=== PATIENT | male | born 1965 ===

== ENCOUNTER 2017-12-15 08:35 | Day surgery (SDC) | payer BC ==
[~2017-12-15] VITALS: Ht 190.5 cm; Wt 99.8 kg
[2017-12-15] VITALS (9 sets, daily range): BP systolic 105–135; BP diastolic 72–95
[2017-12-15] MEDS ORDERED: ceFAZolin sod 1 GM in NS 55 ML IVPB ONE (09:00)
[2017-12-15] MEDS ORDERED: NKM (09:27)
[2017-12-15] MEDS ORDERED: Kenalog-40 1ml Vial ONE (09:52)
[2017-12-15] MEDS ORDERED: Betadine 10% Oint 30gm TOPIC ONE (09:52)
[2017-12-15] MEDS ORDERED: Cocaine HCl 4% 4ml vial TOPIC ONE (09:52)
[2017-12-15] MEDS ORDERED: Lidocaine 1% 10mg/ml/Epi 0.005mg/ml 30ml vial INJ ONE (09:53)
[2017-12-15] MEDS ORDERED: Oxymetazoline 0.05% Na Spray 30ml NASAL ONE (09:53)
[2017-12-15] MEDS ORDERED: fentaNYL 100 mcg/2 mL IV ONE (10:29)
[2017-12-15] MEDS ORDERED: Lidocaine 1% MPF 10mg/ml 5ml ONE (10:29)
[2017-12-15] MEDS ORDERED: Propofol 200mg/20ml IV ONE ×3 (10:29→14:10)
[2017-12-15] MEDS ORDERED: Midazolam 2mg/2ml Inj ONE ×2 (10:29→12:05)
[2017-12-15] MEDS ORDERED: Succinylcholine 20mg/ml 10ml vial ONE (11:08)
[2017-12-15] MEDS ORDERED: Zemuron 50mg/5ml Inj IV ONE (11:08)
--- NOTE | 2017-12-15 11:20 | Pre-Procedure Note/Attestation ---
Pre-Procedure Note/Attestation Complete Prior to Procedure Planned Procedure: not applicable Procedure Narrative: repair of nasal obstruction Indications for Procedure Pre-Operative Diagnosis: septal deviation, bilateral hypertrophied inferior turbinates, obstructing nasal deformities Attestation I attest that I discussed the nature of the procedure; its benefits; risks and complications; and alternatives (and the risks and benefits of such alternatives ), prior to the procedure, with the patient (or the patient's legal telephone sales representative). I attest that, if there was a reasonable possibility of needing a blood transfusion, the patient (or the patient's legal telephone sales representative) was given the [facility] standardized written summary, pursuant to the [place] Blood Safety Act ([place] Health and Safety Code # 1645, as amended). I attest that I re-evaluated the patient just prior to the surgery and that there has been no change in the patient's H&P, except as documented below: HEMAL KOWALSKI Dec 15, 2017 11:20
[2017-12-15] MEDS ORDERED: NS Irrig 1000ml ONE (11:30)
[2017-12-15] MEDS ORDERED: LR 1000ml ONE (11:30)
[2017-12-15] MEDS ORDERED: Sterile Water Irrig 1000ml IRRIG ONE (11:30)
[2017-12-15] MEDS ORDERED: Lidocaine 1% 10mg/ml/EPI 0.01mg/ml 50ml INJ ONE (11:40)
[2017-12-15] MEDS ORDERED: LR 1000ml 1,000 ML IVLG SCH (12:39)
--- NOTE | 2017-12-15 12:39 | Anethesia Preoperative Eval ---
Anesthesia Pre-op PMH/ROS General Date of Evaluation: Dec 15, 2017 Time of Evaluation: 11:22 Anesthesiologist: Dixon ASA Score: ASA 2 Mallampati Score Class I : Soft palate, uvula, fauces, pillars visible Class II: Soft palate, uvula, fauces visible Class III: Soft palate, base of uvula visible Class IV: Only hard plate visible Mallampati Classification: Class II Surgeon: Manpreet Diagnosis: Deviated septum Surgical Procedure: Septoplasty turbinate ablasion Anesthesia History: none Social History: smoking - h/o Family History: no anesthesia problems Allergies: Coded Allergies: No Known Allergies (Unverified , 12/13/17) Medications: see eMAR Past Medical History Cardiovascular: Denies: HTN, CAD, [place], valve dz, arrhythmia, other Pulmonary: Denies: asthma, COPD, [place], other Gastrointestinal/Genitourinary: Reports: GERD - mild; Denies: CRI, ESRD, other Neurologic/Psychiatric: Denies: dementia, CVA, depression/anxiety, TIA, other Endocrine: Denies: DM, hypothyroidism, steroids, other HEENT: Denies: cataract (L), cataract (R), glaucoma, [place] (L), [place] (R), other Hematology/Immune: Denies: anemia, DVT, bleeding disorder, other Musculoskeletal/Integumentary: Denies: OA, RA, DJD, DDD, edema, other PMH Narrative: as above PSxH Narrative: cholecystectomy Anesthesia Pre-op Phys. Exam Physician Exam Last Vital Signs Date Time Temp Pulse Resp B/P (MAP) Pulse Ox O2 Delivery O2 Flow Rate FiO2 12/15/17 09:28 96.8 65 20 105/72 98 Room Air 96.8 Constitutional: NAD Neurologic: CN 2-12 intact Cardiovascular: RRR, no M/R/G Respiratory: CTA Gastrointestinal: S/NT/ND Airway Exam Mallampati Score: Class II MO: full Neck: flexible ROM: full Teeth: intact Dentures: no upper, no lower Anesthesia Pre-op A/P Labs see chart Studies Pre-op Studies: EKG - sr Risk Assessment & Plan Assessment: ASA 2 Plan: TIVA nasal ALEIDA ETT Status Change Before Surgery: No Pre-Antibiotics Drug: Ancef 2 gr. Given Within 1 Hr of Incision: Yes Time Given: 12:38 Roger Metcalf MD Dec 15, 2017 12:39
[2017-12-15] MEDS ORDERED: Meperidine 50mg/ml Inj(FOR RIGORS ONLY) IV PRN (12:45)
[2017-12-15] MEDS ORDERED: fentaNYL 100 mcg/2 mL IV PRN (12:45)
[2017-12-15] MEDS ORDERED: Ketorolac 30mg Inj IV PRN (12:45)
[2017-12-15] MEDS ORDERED: DiphenhydrAMINE 50mg/ml Inj IVP PRN (12:45)
[2017-12-15] MEDS ORDERED: Glycopyrrolate 0.2mg/ml 1ml Vial ONE (12:56)
[2017-12-15] MEDS ORDERED: Ketorolac 30mg Inj ONE (13:27)
--- NOTE | 2017-12-15 14:40 | Immediate Post-Op Evaluation ---
Immediate Post-Op Evalulation Immediate Post-Op Evalulation Procedure: Septoplasty turbinate ablasion Date of Evaluation: Dec 15, 2017 Time of Evaluation: 14:38 IV Fluids: 1600 Blood Products: none Estimated Blood Loss: 50 Urinary Output: none Blood Pressure Systolic: 133 Blood Pressure Diastolic: 84 Pulse Rate: 89 Respiratory Rate: 20 O2 Sat by Pulse Oximetry: 99 Temperature (Fahrenheit): 97.6 Pain Score (1-10): 2 Nausea: No Vomiting: No Complications none Patient Status: reacts, patent, extubated, none Hydration Status: adequate Roger Metcalf MD Dec 15, 2017 14:39
--- NOTE | 2017-12-15 14:44 | Brief Operative Note ---
Immediate Post Operative Note Operative Note Pre-op Diagnosis: septal deviation, bilateral hypertrophied inferior turbinates, obstructing nasal deformities Procedure: septoplasty bilateral inferior turinectomies with itnramural coagulation, repair of collapsed right internal valve with rotation advancement flap, reconstruction of collapsed right nostril (external nasal valve) Post-op Diagnosis: same as pre-op plus Surgeon: Tariq Case M.D. Anesthesiologist: Dixon Hoover Anesthesia: general Specimen: yes - septum Complications: none Condition: stable Fluids: ringers lactate Estimated Blood Loss: minimal Drains: none Packing: [email or web address] Implant(s) used?: No TARIQ CASE Dec 15, 2017 14:44
--- NOTE | 2017-12-15 15:00 | 48 Hour Post Anesthesia Eval ---
Post Anesthesia Evaluation Procedure: Septoplasty turbinate ablasion Date of Evaluation: Dec 15, 2017 Time of Evaluation: 14:59 Blood Pressure Systolic: 132 0: 84 Pulse Rate: 81 Respiratory Rate: 20 Temperature (Fahrenheit): 97.6 O2 Sat by Pulse Oximetry: 98 Airway: patent Nausea: No Vomiting: No Pain Intensity: 3 Hydration Status: adequate Cardiopulmonary Status: stable Mental Status/LOC: patient returned to baseline Follow-up Care/Observations: n/a Post-Anesthesia Complications: none Follow-up care needed: ready to discharge Roger Metcalf MD Dec 15, 2017 15:00
--- NOTE | 2017-12-18 10:01 | Operative Note - Dictated ---
DATE OF OPERATION: 12/15/2017 SURGEON: Tariq Case M.D. ANESTHESIOLOGIST: Roger Metcalf M.D. TYPE OF ANESTHESIA: General. PREOPERATIVE DIAGNOSES: 1. Septal deviation. 2. Bilateral hypertrophied inferior turbinates. 3. Obstructing nasal deformity. POSTOPERATIVE DIAGNOSES: 1. Septal deviation. 2. Bilateral hypertrophied inferior turbinates. 3. Collapse of right internal valve. 4. Collapse of right external nasal valve. INDICATION FOR SURGERY: The patient is a 52-year-old male, who complains of bilateral nasal obstruction unrelieved by medication. His nasal obstruction is such that he is a constant mouth breather. His examination revealed a S-shaped septal deviation with bilateral hypertrophied inferior turbinates and collapse of the right internal and external nasal valve. Because of his nasal obstruction unresponsive to medication, he is now being brought to the operating room for surgical repair. The findings at surgery revealed an S-shaped septal deviation of the septum curving to the right inferiorly and then superiorly to the left. Both inferior turbinates are significantly hypertrophied. There is collapse and blunting of the right internal valve and also collapse of the right lateral external nasal valve. DESCRIPTION OF PROCEDURE: The patient was brought to the operating room while premedicated and taken preoperative antibiotics. He was then placed in supine position on the operating room table. A sterile marking pen was used to demarcate the deformity of the right side of his nose. The patient then underwent satisfactory endotracheal intubation. He was given IV sedation. The nasal cavity was then sprayed with 0.25% Chris-Synephrine. A sterile Q-tip saturated with Betadine were used to sterilize the intranasal cavity. Approximately 26 mL of 1% Xylocaine with 1:100,000 epinephrine were used to inject the nasal and septal frameworks as well as the right nasal soft tissue region. Less than 200 mg of cocaine was used in intranasal packing. The patient was then prepped and draped in the usual sterile fashion. Examination was as previously described except the patient has significant depression of the right mid vault area, which extended up to just below the right nasal tip. The packing has been removed from the intranasal area. The septal deviation was then undertaken. A #15 blade was used to make a right inferior septal incision and a right inferior septal mucoperichondrium was then elevated running into significant scar tissue posteriorly and multiple fracture sites. The elevation was then proceeded over the right side of the bony septum. An incision was made between the cartilage and bony septum, and the left mucoperiosteal flap has been elevated. That portion of over-riding obstructing perpendicular plate of the ethmoid and vomer bone were incised in strips from all its attachments and removed from the field of operation along with a large protruding left maxillary crest spur. A similar procedure was performed on the septal cartilage maintaining good anterior and inferior support. The cartilage removed and was then placed in Betadine solution to use 05:17 for graft later. Re-examination now revealed the septum in a more midline physiologic position for breathing. Bipolar intramural coagulation of both inferior turbinates was then accomplished. An incision was made on the undersurface of both inferior turbinates and mucosa stripped from the underlying bone. The inferior turbinates were then outfractured and a small piece of bone was removed from the pocket. Re-examination now revealed the septum to be in a more midline physiologic position with a still persistent collapse of right internal and external valve. With the right side of the nose again prepped with Betadine solution, a #15 blade was used to make a right inferior lower lateral cartilage incision as well as between the cartilage incision. Between the cartilage incision was then carried over the dorsum up to the septal angle. Vertical cuts were then made both inferiorly and superiorly at the area of collapse, and these were connected with a transverse incision. The entire area of collapse along the dorsum of the nose in the internal valve region was then rotated anterior and laterally and sewn in place with 4-0 plain. This alleviated the internal valve collapse. An incision was then made just inferior to the lower lateral cartilage. An extensive elevating was performed over the lower lateral cartilage, running through significant scar tissue just below the nasal tip. The lower lateral cartilage was then delivered. Examination revealed a tremendous convexity of the lower lateral cartilage, which was blocking the right nasal inflow tract. The right lower lateral cartilage was found to be quite enlarged and extended up over to the nasal bones with a very short midlateral cartilage. The area of collapse along the right lower lateral cartilage was then extensively morselized 07:58 and placed back in position. This alleviated the obstruction of the external nasal valve. Re-examination now revealed the patient to have good bilateral nasal airway. All blood was suctioned from the nose and nasopharynx area. The between the cartilage incision was closed with interrupted sutures of 4-0 plain 08:26 crosshatch in the lower lateral cartilage was sewn in place with interrupted sutures of 5-0 plain. A 4-0 plain was used to close the septal incision as well as to splint the septum. A 5-0 Prolene was placed in a mattress like suture encompassing the area of the collapse of the right lateral external valve and was then secured over a bolster of cotton. An external dressing consisting of Mastisol, Steri-Strips, adhesive tape, and a cast were secured in place at the end of procedure after Telfa coated with Betadine solution was secured intranasally with a suture of 3-0 silk. After this was accomplished, procedure was terminated. The patient tolerated the procedure well and left the operating room in satisfactory condition. ESTIMATED BLOOD LOSS: 30 mL. COUNTS: Sponge and needle count were correct. Tariq Case M.D. DR: DOMINGO JOB#: [id number] CC:
== END 2017-12-15 16:30 | disposition home or self-care (01) ==
LOC: SUR 08:35
DX: J34.2 Deviated nasal septum (principal); J34.3 Hypertrophy of nasal turbinates; M95.0 Acquired deformity of nose; Z87.891 Personal history of nicotine dependence; K21.9 Gastro-esophageal reflux disease without esophagitis; Z90.49 Acquired absence of other specified parts of digestive tract
CPT/HCPCS: 30140; 30520; J0330; J0690; J1885; J2250; J2704; J3010; J7120; 94003; 94150

== ENCOUNTER 2018-11-29 09:18 | Day surgery (SDC) | payer BC ==
[2018-11-29] VITALS (10 sets, daily range): BP systolic 125–154; BP diastolic 80–103
[~2018-11-29] VITALS: Ht 182.9 cm; Wt 104.3 kg
[~2018-11-29 09:18] MED LIST: NKM; ceFAZolin sod 1 GM in NS 55 ML IVPB SCH
[2018-11-29] MEDS ORDERED: LR 1000ml 1,000 ML IVLG SCH (10:39)
--- NOTE | 2018-11-29 10:39 | Anethesia Preoperative Eval ---
Anesthesia Pre-op PMH/ROS General Date of Evaluation: November 29, 2018 Anesthesiologist: Aj ASA Score: ASA 2 Mallampati Score Class I : Soft palate, uvula, fauces, pillars visible Class II: Soft palate, uvula, fauces visible Class III: Soft palate, base of uvula visible Class IV: Only hard plate visible Mallampati Classification: Class II Surgeon: Manpreet Diagnosis: Collapse of external valve Surgical Procedure: Repair of bilateral external valves Anesthesia History: none Family History: no anesthesia problems Allergies: Coded Allergies: No Known Allergies (Unverified , 11/29/18) Medications: see eMAR Patient NPO?: Yes NPO Date: November 28, 2018 NPO Time: 22:00 Past Medical History Cardiovascular: Denies: HTN, CAD, [place], valve dz, arrhythmia, other Pulmonary: Denies: asthma, COPD, [place], other Gastrointestinal/Genitourinary: Denies: GERD, CRI, ESRD, other Neurologic/Psychiatric: Denies: dementia, CVA, depression/anxiety, TIA, other Endocrine: Denies: DM, hypothyroidism, steroids, other HEENT: Reports: [place] (L), [place] (R), other - deviated septum; Denies: cataract (L), cataract (R), glaucoma Hematology/Immune: Denies: anemia, DVT, bleeding disorder, other Musculoskeletal/Integumentary: Denies: OA, RA, DJD, DDD, edema, other Other: obesity PSxH Narrative: lap raissa, ESWL Anesthesia Pre-op Phys. Exam Physician Exam Last Vital Signs Date Time Temp Pulse Resp B/P (MAP) Pulse Ox O2 Delivery O2 Flow Rate FiO2 11/29/18 09:57 Room Air 11/29/18 09:55 97.2 83 18 125/91 97 Constitutional: NAD Cardiovascular: RRR Respiratory: CTA Airway Exam Mallampati Score: Class II MO: full ROM: full Anesthesia Pre-op A/P Labs see chart Studies Pre-op Studies: EKG - sr Risk Assessment & Plan Assessment: ASA II Plan: GA Status Change Before Surgery: No Pre-Antibiotics Drug: Ancef 2g Given Within 1 Hr of Incision: Yes Toya Graham MD November 29, 2018 10:39
[2018-11-29] MEDS ORDERED: Hydromorphone 0.5mg/0.5ml inj IVP PRN (10:45)
[2018-11-29] MEDS ORDERED: fentaNYL 100 mcg/2 mL IV PRN (10:45)
[2018-11-29] MEDS ORDERED: DiphenhydrAMINE 50mg/ml Inj IVP PRN (10:45)
[2018-11-29] MEDS ORDERED: Metoclopramide 10mg/2ml Inj IVP PRN (10:45)
[2018-11-29] MEDS ORDERED: Midazolam 2mg/2ml Inj IVP PRN (10:45)
[2018-11-29] MEDS ORDERED: LORazepam Inj 2mg/ml 1ml IV PRN (10:45)
[2018-11-29] MEDS ORDERED: Betadine 10% Oint 30gm TOPIC ONE ×2 (12:20→12:21)
[2018-11-29] MEDS ORDERED: Cocaine HCl 4% 4ml vial TOPIC ONE (12:20)
[2018-11-29] MEDS ORDERED: Kenalog-40 1ml Vial ONE (12:20)
[2018-11-29] MEDS ORDERED: Bacitracin Oint 15gm Tube TOPIC ONE (12:20)
[2018-11-29] MEDS ORDERED: Oxymetazoline 0.05% Na Spray 30ml NASAL ONE (12:21)
[2018-11-29] MEDS ORDERED: Lidocaine 1% 10mg/ml/EPI 0.01mg/ml 50ml INJ ONE (12:21)
[2018-11-29] MEDS ORDERED: Propofol 200mg/20ml IV ONE ×3 (12:26→14:48)
[2018-11-29] MEDS ORDERED: Lidocaine 1% MPF 10mg/ml 5ml ONE (12:26)
[2018-11-29] MEDS ORDERED: fentaNYL 100 mcg/2 mL IV ONE (12:26)
[2018-11-29] MEDS ORDERED: Midazolam 2mg/2ml Inj ONE (12:26)
[2018-11-29] MEDS ORDERED: Lidocaine 1% Plain 30 ml INJ ONE (12:27)
[2018-11-29] MEDS ORDERED: Metoclopramide 10mg/2ml Inj ONE (12:30)
[2018-11-29] MEDS ORDERED: Sterile Water Irrig 1000ml IRRIG ONE (12:30)
[2018-11-29] MEDS ORDERED: Dexamethasone 4mg/ml vial ONE (12:30)
[2018-11-29] MEDS ORDERED: LR 1000ml ONE (12:30)
[2018-11-29] MEDS ORDERED: NS Irrig 1000ml ONE (12:30)
--- NOTE | 2018-11-29 16:04 | 48 Hour Post Anesthesia Eval ---
Post Anesthesia Evaluation Procedure: Repair of bilateral nasal external valves Date of Evaluation: November 29, 2018 Airway: patent Nausea: No Vomiting: No Pain Intensity: 0 Hydration Status: adequate Cardiopulmonary Status: at baseline Mental Status/LOC: patient returned to baseline Post-Anesthesia Complications: 0 Follow-up care needed: ready to discharge Toya Graham MD November 29, 2018 16:04
--- NOTE | 2018-11-29 16:04 | Immediate Post-Op Evaluation ---
Immediate Post-Op Evalulation Immediate Post-Op Evalulation Procedure: Repair of bilateral nasal external valves Date of Evaluation: November 29, 2018 Time of Evaluation: 16:04 IV Fluids: 1.6L Blood Products: 0 Estimated Blood Loss: 20 Urinary Output: 0 Blood Pressure Systolic: 126 Blood Pressure Diastolic: 80 Pulse Rate: 85 Respiratory Rate: 16 O2 Sat by Pulse Oximetry: 98 Temperature (Fahrenheit): 97 Pain Score (1-10): 0 Nausea: No Vomiting: No Complications 0 Patient Status: awake, reacts, patent, none Hydration Status: adequate Drug: Ancef 2g Given Within 1 Hr of Incision: Yes Toya Graham MD November 29, 2018 16:04
--- NOTE | 2018-11-29 16:06 | Pre-Procedure Note/Attestation ---
Pre-Procedure Note/Attestation Complete Prior to Procedure Planned Procedure: right Procedure Narrative: right nasal obstruction not responsive to medical treatment Indications for Procedure Pre-Operative Diagnosis: collapsed right intranasal valve and right nasal obstructing deformity Attestation I attest that I discussed the nature of the procedure; its benefits; risks and complications; and alternatives (and the risks and benefits of such alternatives ), prior to the procedure, with the patient (or the patient's legal counter sales representative). I attest that, if there was a reasonable possibility of needing a blood transfusion, the patient (or the patient's legal counter sales representative) was given the [facility] standardized written summary, pursuant to the [place] Blood Safety Act ([place] Health and Safety Code # 1645, as amended). I attest that I re-evaluated the patient just prior to the surgery and that there has been no change in the patient's H&P, except as documented below: Tariq Case MD November 29, 2018 16:06
--- NOTE | 2018-11-29 16:09 | Brief Operative Note ---
Immediate Post Operative Note Operative Note Pre-op Diagnosis: collapsed right intranasal valve and right nasal obstructing deformity Procedure: right repair of right external valve collapse with bank rib cartilage and rotation advancement flap Post-op Diagnosis: right external valve collapse Post-op Diagnosis: same as pre-op Surgeon: Tariq Case M.D. Anesthesiologist: Aj Hoover Anesthesia: general Specimen: none Complications: none Condition: stable Fluids: ringers lactate Estimated Blood Loss: minimal Drains: none Packing: [email or web address] Implant(s) used?: Yes - bank rib cartilage Tariq Case MD November 29, 2018 16:09
[2018-11-29] MEDS ORDERED: Ketorolac 30mg Inj IV SCH (16:30)
[2018-11-29] MEDS ORDERED: Ketorolac 30mg Inj ONE (16:34)
--- NOTE | 2018-11-30 07:30 | Operative Note - Dictated ---
DATE OF OPERATION: 11/29/2018 SURGEON: Tariq Case M.D. ANESTHESIOLOGIST: Toya Rocha M.D. ANESTHESIA: General with IV sedation. PREOPERATIVE DIAGNOSIS: Collapsed right external nasal valve. POSTOPERATIVE DIAGNOSIS: Collapsed right external nasal valve. PROCEDURE: Repair of right external nasal valve with banked rib cartilage grafting. INDICATION FOR SURGERY: The patient is a 53-year-old male, who presents with persistent right nasal obstruction, unresponsive to medication. His examination revealed a scarring of the right side of his nose. Intranasal examination revealed a collapsed right lateral cartilage protruding into nasal airway and essentially blocking passageway. Very anterior aspect of the nostril region was also collapsed. Because of this persistent collapse, the patient is now being brought to the operating room for surgical repair. The findings at surgery revealed significant thick scar tissue. There was also found to be a break at the nasal cleft through the cartilage with the lateral aspect slightly telescoped over the medial evelyne. PROCEDURE AND FINDINGS: The patient was brought to the operating room while premedicated and placed in supine position on the operating room table. The patient was given IV antibiotics prior to being brought to the operating room. After the patient underwent endotracheal intubation, he was given IV sedation. The nasal cavity was sprayed with 0.25% Chris-Synephrine. Sterile Q-tips soaked in Betadine solution were used to sterilize the intranasal cavity. Approximately, 5 mL of 1% Xylocaine with 1:1000 epinephrine was used to inject the right lateral nasal framework. The time of injection was hard to even get the needle into the soft tissue because of the thick resistance from the scar. Slight amount was finally able to be injected. The patient then prepped and draped in usual sterile fashion and cocaine, which had been placed intranasally gauze was then removed from the field of operation. The intranasal area was again cleaned with Betadine solution and Q-tips. Then, a #15 blade was used to make between the cartilage incision carried over the septal angle and then along the inferior aspect of the right septum. elevation was then performed burning again into thick scar tissue, again it is possible due to the septal scissors. A fresh #15 blade was then used to make incision just along the inferior aspect of the right lower lateral cartilage up to the nasal tip and then along the columella, again running into thick very hard scar tissue. Using sharp and blunt dissection, eventually the lower lateral cartilage was able to be from the overlying skin and delivered. Examination revealed that the lateral evelyne of the lower lateral cartilage was convexed into the nasal cavity and was further displayed the overlying thick layer of scar tissue. There is also a fracture through the nasal tip cartilage with the lateral aspect starting to overlap the medial aspect causing a bossing effect. This narrowed the very anterior aspect of the external valve. With the lower lateral cartilages delivered, the scar tissue was able to be removed using sharp dissection from the lower lateral cartilage being very thin atrophic cartilage, which bucked significantly inward. The area of buckling was outlined. An incision was made through the cartilage and the underlying mucoperichondrium was and the cartilage was removed from the field of operation. The lower lateral cartilage graft pedicle was then placed back in position. A piece of weighted banked cartilage was then brought into field of operation. Using a #15 blade, a piece of cartilage was carved to fit the dimensions of the cartilage removed, so that the cartilage was in a convex position rather than a concave position to improve and support the right lateral aspect of the external nasal valve. This was placed in Betadine solution. The right lower lateral cartilage was then delivered. The area was then rinsed with Betadine solution and the graft was then sewn in place with interrupted sutures of 5-0 plain. Re-examination revealed that the cartilage was in good position and with good support. Attention was then turned to the nasal tip. That portion of excess cartilage protruding into the nasal tip was removed laterally maintaining good support. Examination now revealed that the bossing is now alleviated. During dissection, a small area of the underlying mucoperichondrium was and this was sewn in place with interrupted sutures of 5-0 plain. The pedicle was then placed back in position and found that the obstruction had been alleviated with opening at the very anterior intranasal cap. It was again rinsed with Betadine solution and 0.3 to 0.4 mL of 40 mg of Kenalog was injected in the area to prevent postoperative scarring. The intranasal incision was then closed with interrupted sutures of 4-0 plain as well as along 4-0 plain was also used to close the right inferior septal incision site. 5-0 plain was used to close the inferior lower lateral cartilage incision. The area was again rinsed with Betadine solution and Surgicel was placed intranasally for support posteriorly. An external dressing consisting of paper adhesive tape and a cast were secured in place with a pressure dressing postoperatively to help prevent postoperative bleeding and scarring. When this has been accomplished, the procedure was terminated. The patient tolerated the procedure well and left the operating room in satisfactory condition. ESTIMATED BLOOD LOSS: Negligible. COUNTS: Sponge and needle counts were correct. Tariq Case M.D. DR: CAMILLE JOB#: [id number] CC:
== END 2018-11-29 17:45 | disposition home or self-care (01) ==
LOC: SUR 09:18
DX: M95.0 Acquired deformity of nose (principal); Z90.49 Acquired absence of other specified parts of digestive tract; E66.9 Obesity, unspecified; Z68.31 Body mass index [BMI] 31.0-31.9, adult
CPT/HCPCS: 21230; 30465; J0690; J1100; J1170; J1885; J2001; J2250; J2405; J2704; J2765; J3010; J3301; 94003; 94150